=== PATIENT | female | born 1980 | race Caucasian/White ===

== ENCOUNTER 2018-08-15 22:29 | Emergency (ER) | payer OTHER ==
[2018-08-15 22:59] VITALS: BP 110/65; PULSE 67; RESP 16; TEMP 97.9
[2018-08-16] MEDS ORDERED: methylPREDNISolone SOD SUCCI 125 MG/2 ML VIAL IM ONE (00:39)
[2018-08-16] MEDS ORDERED: KETOROLAC 30 MG/ML 1 ML VIAL IM STA (00:39)
--- NOTE | 2018-08-16 01:33 | CT ---
EXAM: CT Head Without Intravenous Contrast CLINICAL HISTORY: ITS.REASON CT Reason: Pain TECHNIQUE: Axial computed tomography images of the head/brain without intravenous contrast. CTDI is 53 mGy and DLP is 1182 mGy-cm. This CT exam was performed using one or more of the following dose reduction techniques: automated exposure control, adjustment of the mA and/or kV according to patient size, and/or use of iterative reconstruction technique. COMPARISON: No relevant prior studies available. FINDINGS: Brain: No hemorrhage, large hypodensity, or mass effect. Ventricles: No hydrocephalus. Bones/joints: Unremarkable. Soft tissues: Unremarkable. Sinuses: Unremarkable. Mastoid air cells: Clear. IMPRESSION: No acute hemorrhage, hydrocephalus, or mass effect. EXAM: CT Cervical Spine Without Intravenous Contrast CLINICAL HISTORY: ITS.REASON CT Reason: Pain TECHNIQUE: Axial computed tomography images of the cervical spine without intravenous contrast. CTDI is 53 mGy and DLP is 1182 mGy-cm. This CT exam was performed using one or more of the following dose reduction techniques: automated exposure control, adjustment of the mA and/or kV according to patient size, and/or use of iterative reconstruction technique. COMPARISON: No relevant prior studies available. FINDINGS: Vertebrae: No acute fracture. Discs/spinal canal/neural foramina: No high grade spinal canal stenosis. Soft tissues: Mild centrilobular emphysema. IMPRESSION: No acute fracture or subluxation.
--- NOTE | 2018-08-16 01:48 | ED ---
Neck Injury/Pain HPI - General Chief Complaint: Neck Pain/Injury Stated Complaint: Neck/shoulder pain Time Seen by Provider: 08/16/18 00:19 Mode of arrival: ambulatory Limitations: no limitations - History of Present Illness Initial Comments: 38-year-old female patient presents to the emergency department today for evaluation of neck pain and paresthesia and swelling to the bilateral hands. Patient states symptoms started 2 weeks ago. Patient states that she does not have improvement of symptoms despite use of anti-inflammatory medication. Patient states that she did have symptoms similar to this in the past and her physician gave her steroid injections which did seem to help. Patient states that the neck pain is now causing a headache. She describes it as an intense pressure at the base of her skull. Denies any blurred or double vision. Denies any dizziness or weakness. 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 States that the numbness and tingling to the hands gets worse when she is lying down and does occasionally wake her from sleep. She denies any fever or chills. Denies any known neck injury.Patient denies any recent rash, fever, chills, shortness breath, chest pain, abdominal pain, nausea, vomiting, diarrhea, constipation, back pain, numbness, tingling, dizziness, weakness, hematuria, dysuria, urinary urgency, urinary frequency, headache, visual changes, or any other complaints. - Related Data Previous Rx's Medication Instructions Recorded Naproxen [Naprosyn] 500 mg PO BID #30 tablet 08/16/18 predniSONE 50 mg PO DAILY #5 tablet 08/16/18 Allergies Allergy/AdvReac Type Severity Reaction Status Date / Time No Known Allergies Allergy Verified 08/15/18 22:59 Review of Systems ROS Statement: Those systems with pertinent positive or pertinent negative responses have been documented in the HPI. ROS Other: All systems not noted in ROS Statement are negative. Past Medical History Past Medical History: No Reported History History of Any Multi-Drug Resistant Organisms: None Reported Past Surgical History: Section Additional Past Surgical History / Comment(s): left side neck tumor removed, tumor removed from labia, Past Psychological History: No Psychological Hx Reported Smoking Status: Current every day smoker Past Alcohol Use History: Occasional Past Drug Use History: Marijuana General Exam Limitations: no limitations General appearance: alert, in no apparent distress, other (This is a well- developed, well-nourished adult female patient in no acute distress. Vital signs upon presentation are temperature 97.9F, pulse 67, respirations 16, blood pressure 110/65, pulse ox 99% on room air.) Eye exam: Present: normal appearance, PERRL, EOMI. Absent: scleral icterus, conjunctival injection, periorbital swelling ENT exam: Present: normal exam, normal oropharynx, mucous membranes moist Neck exam: Present: normal inspection, full ROM. Absent: tenderness, meningismus, lymphadenopathy Respiratory exam: Present: normal lung sounds bilaterally. Absent: respiratory distress, wheezes, rales, rhonchi, stridor Cardiovascular Exam: Present: regular rate, normal rhythm, normal heart sounds. Absent: systolic murmur, diastolic murmur, rubs, gallop, clicks GI/Abdominal exam: Present: soft, normal bowel sounds. Absent: distended, tenderness, guarding, rebound, rigid Extremities exam: Present: normal inspection, full ROM, normal capillary refill, other (Mild swelling to the bilateral hands. No erythema. Skin is otherwise pink, warm, dry. Cap refills is 3 seconds. Radial pulses 2+ and equal bilaterally.). Absent: tenderness, pedal edema, joint swelling, calf tenderness Neurological exam: Present: alert, oriented X3, CN II-XII intact Psychiatric exam: Present: normal affect, normal mood Skin exam: Present: warm, dry, intact, normal color. Absent: rash Course Vital Signs 08/15/18 22:54 Temperature 97.9 F Pulse Rate 67 Respiratory 16 Rate Blood Pressure 110/65 O2 Sat by Pulse 99 Oximetry Medical Decision Making - Medical Decision Making 38-year-old female patient presents to the emergency department today for evaluation of neck pain and bilateral hand pain and paresthesia. Physical examination was relatively unremarkable she did exhibit some mild swelling to the bilateral hands with no cellulitis. Neurovascular status is intact. CT of the brain and C-spine was performed and showed no acute abnormalities. Patient was given IM Toradol and Solu-Medrol here in the emergency department. Shows report mild improvement prior to discharge. She does request a work note for August 15. She is instructed to follow-up with her primary care physician for recheck in 1-2 days. Return parameters were discussed in detail. She ve rbalizes understanding and agrees this plan. - Radiology Data Radiology results: report reviewed, image reviewed CT of the head without contrast was obtained. Report was reviewed in its entirety. Impression by Dr. French shows no acute hemorrhage, hydrocephalus, or mass effect. Cervical images were obtained as well as showed no acute fracture or subluxation. No high-grade spinal canal stenosis. Disposition Clinical Impression: Cervical radiculopathy, Carpal tunnel syndrome Disposition: HOME SELF-CARE Condition: Good Instructions (If sedation given, give patient instructions): Paresthesia (ED), Cervical Radiculopathy (ED) Additional Instructions: Take medications as directed. Follow-up with your primary care physician for recheck in 1-2 days. Return to the emergency department immediately for any new, worsening, or concerning symptoms. Prescriptions: Naproxen [Naprosyn] 500 mg PO BID #30 tablet predniSONE 50 mg PO DAILY #5 tablet Is patient prescribed a controlled substance at d/c from ED?: No Referrals: None,Stated [Primary Care Provider] - 1-2 days Time of Disposition: 01:48
== END 2018-08-16 02:26 | disposition home or self-care (01) ==
LOC: EC 22:29
DX: M54.12 Radiculopathy, cervical region (principal); M79.89 Other specified soft tissue disorders; F17.200 Nicotine dependence, unspecified, uncomplicated
CPT/HCPCS: 72125; 70450; 99283; 96372 ×2; J2930; J1885

== ENCOUNTER 2020-11-08 17:33 | Emergency (ER) | payer OTHER ==
[2020-11-08 18:49] LABS: Basophils # (A) 0.1 k/uL (0-0.2); Basophils % (A) 1 %; Eosinophils # (A) 0.7 k/uL (0-0.7); Eosinophils % (A) 7 %; HCT 43.1 % (34.0-46.0); HGB 14.4 gm/dL (11.4-16.0); Lymphocytes # (A) 2.6 k/uL (1.0-4.8); Lymphocytes % (A) 28 %; MCH 33.4 pg (25.0-35.0); MCHC 33.5 g/dL (31.0-37.0); MCV 99.5 fL (80.0-100.0); Mean Platelet Volume 8.3; Monocytes # (A) 0.3 k/uL (0-1.0); Monocytes % (A) 3 %; Neutrophils # (A) 5.7 k/uL (1.3-7.7); Neutrophils % (A) 61 %; Platelet Count 249 k/uL (150-450); RBC 4.33 m/uL (3.80-5.40); RDW 13.1 % (11.5-15.5); WBC 9.4 k/uL (3.8-10.6)
[2020-11-08 18:57] LABS: ALT 46 U/L (4-34); AST 71 U/L (14-36); African American GFR (CKD) >90 (>60 ml/min/1.73 sqM); Albumin 4.9 g/dL (3.5-5.0); Alkaline Phosphatase 138 U/L (38-126); Anion Gap 12 mmol/L; Blood Urea Nitrogen 7 mg/dL (7-17); Calcium 9.6 mg/dL (8.4-10.2); Carbon Dioxide 22 mmol/L (22-30); Chloride 105 mmol/L (98-107); Glucose 76 mg/dL (74-99); Magnesium 2.4 mg/dL (1.6-2.3); Non-African American GFR(CKD) >90 (>60 ml/min/1.73 sqM); Potassium 4.4 mmol/L (3.5-5.1); Sodium 139 mmol/L (137-145); Total Bilirubin 0.3 mg/dL (0.2-1.3); Total Protein 8.2 g/dL (6.3-8.2)
[2020-11-08 19:07] LABS: INR 0.9 (<1.2); Partial Thromboplastin Time 22.3 sec (22.0-30.0); Prothrombin Time 9.6 sec (9.0-12.0)
--- NOTE | 2020-11-08 19:32 | ED ---
Chest Pain HPI - General Chief Complaint: Chest Pain Stated Complaint: chest pain Time Seen by Provider: 11/08/20 18:45 Source: patient Mode of arrival: ambulatory Limitations: no limitations - History of Present Illness Initial Comments: Henrietta is a 40-year-old female with no cardiac history presents ER today for evaluation of intermittent chest pain. Patient states she is just under a lot of emotional stress right now. Her mother was recently diagnosed with cancer. She states that both of her children are having a hard time coping with this. She also states that she's missed a few days of work because of this and they're threatening to fire her. Patient states that she's been waking up during the night with chest pain thinking that she's having a heart attack. Chest pains have been intermittent not associated with any palpitations shortness breath or lightheadedness. She has no known coronary artery disease history. She is a smoker. No history of hypertension hyperlipidemia. Patient states that her mother asked her to come to the hospital be evaluated make sure she wasn't going to have a heart attack. - Related Data Home Medications Medication Instructions Recorded Confirmed No Known Home Medications 11/08/20 11/08/20 Allergies Allergy/AdvReac Type Severity Reaction Status Date / Time No Known Allergies Allergy Verified 11/08/20 19:24 Review of Systems ROS Statement: Those systems with pertinent positive or pertinent negative responses have been documented in the HPI. ROS Other: All systems not noted in ROS Statement are negative. EKG Findings - EKG Comments: EKG Findings:: EKG was obtained due to complaint of chest pain, EKG was obtained 1840 rate is 77 rhythm is sinus there is a normal axis there are normal intervals are no acute ST elevations or depressions there is no evidence of ischemia or infarction. Past Medical History Past Medical History: No Reported History History of Any Multi-Drug Resistant Organisms: None Reported Past Surgical History: Section Additional Past Surgical History / Comment(s): left side neck tumor removed, tumor removed from labia, Past Psychological History: No Psychological Hx Reported Smoking Status: Current every day smoker Past Alcohol Use History: Occasional Past Drug Use History: Marijuana General Exam - General Exam Comments Initial Comments: Physical Exam GENERAL: Patient is well-developed and well-nourished. Patient is nontoxic and well- hydrated and is in no distress. HENT: Normocephalic, Atraumatic. EYES: PERRL, EOMI PULMONARY: Unlabored respirations. No audible rales rhonchi or wheezing was noted. CARDIOVASCULAR: There is a regular rate and rhythm without any murmurs gallops or rubs. ABDOMEN: Soft and nontender with normal bowel sounds. SKIN: Skin is clear with no lesions or rashes and otherwise unremarkable. : Deferred NEUROLOGIC: Patient is alert and oriented x3. Moving all extremities spontaneously MUSCULOSKELETAL: Normal extremities with adequate strength and full range of motion. No lower extremity swelling or edema. No calf tenderness. PSYCHIATRIC: Normal psychiatric evaluation. Limitations: no limitations Course Vital Signs 11/08/20 11/08/20 18:05 18:42 Pulse Rate 88 75 Respiratory 18 16 Rate Blood Pressure 118/74 113/80 O2 Sat by Pulse 98 98 Oximetry Chest Pain MDM - MDM Patient was seen and evaluated history is obtained from the patient Labs and imaging were obtained EKG is nonischemic Labs with mild transaminitis no other abnormalities no elevation in the troponin Results were discussed with the patient, given her chest pain is intermittent, not constant not exertional seems to be exacerbated by emotional distress I do feel we can appropriately rule out acute coronary syndrome as the cause of her pain. Patient stable for discharge home and outpatient follow-up. Disposition Clinical Impression: Atypical chest pain Disposition: HOME SELF-CARE Condition: Stable Instructions (If sedation given, give patient instructions): Chest Pain (ED) Is patient prescribed a controlled substance at d/c from ED?: No Referrals: None,Stated [Primary Care Provider] - 1-2 days
[2020-11-08 19:47] VITALS: BP 112/81; PULSE 85; RESP 20; TEMP 97.8
--- NOTE | 2020-11-08 20:11 | XR ---
EXAMINATION TYPE: XR chest 2V DATE OF EXAM: 11/08/2020 CLINICAL HISTORY: chest pain . TECHNIQUE: Frontal and lateral view of the chest. COMPARISON: None FINDINGS: The cardiomediastinal silhouette is within normal limits for size. Pulmonary vasculature i s normal. There is a 1.9 x 1.7 round peripherally dense opacity over the right upper lung on frontal view, not identified on lateral view. There is no acute focal air space opacity. No pleural effusion . No pneumothorax seen. No acute displaced osseous fracture. IMPRESSION: 1. No acute cardiopulmonary process. 2. 1.9 cm round density over the right upper lung of uncertain etiology. Findings may be related to lung versus overlapping musculoskeletal tissues. Recommend short-term follow-up nonemergent CT chest without contrast for further characterization.
== END 2020-11-08 19:45 | disposition home or self-care (01) ==
LOC: EC 17:33
DX: R07.89 Other chest pain (principal); F17.200 Nicotine dependence, unspecified, uncomplicated; F12.90 Cannabis use, unspecified, uncomplicated
CPT/HCPCS: 36415; 71046; 80053; 83735; 84484; 85025; 85610; 85730; 93005; 99285

== ENCOUNTER → 2022-01-23 | Outpatient (CLI) | payer BC ==
--- NOTE | 2022-01-23 12:20 | CT ---
EXAMINATION TYPE: CT chest wo con DATE OF EXAM: 01/23/2022 COMPARISON: None HISTORY: Solitary Pulmonary Nodule CT DLP: [address] of the chest was performed with lung and mediastinal window settings submitted. The la ck of contrast limits evaluation of the vascular, mediastinal and parenchymal structures including th e upper abdomen. LUNGS: Mild upper lobe emphysematous changes. The lungs are clear and free of infiltrate. No atelecta sis. No pulmonary nodule or mass is detected. No pleural effusion. No CT evidence of interstitial lung disease. MEDIASTINUM/PALOMO: Thoracic aorta is of normal caliber with limited evaluation given lack of contrast . The heart is not enlarged. No evidence for mediastinal mass. No lymph nodes greater than 1cm. UPPER ABDOMEN: No significant abnormality is seen. OTHER: No significant other abnormality. IMPRESSION: 1. Mild upper lobe emphysematous changes. No discrete pulmonary nodule is identified at this time.
== END | disposition home or self-care (01) ==
LOC: RADCTMAIN 10:47
PROVIDERS: ATTEND Family Medicine
DX: J43.9 Emphysema, unspecified (principal)
CPT/HCPCS: 71250